=== PATIENT | male | born 1945 | race Caucasian/White ===

== ENCOUNTER → 2018-03-01 | Outpatient (CLI) | payer MEDICARE, OTHER ==
[~2018-03-01] MED LIST: GADOBENATE DIMEGLUMINE 1 ML IV ONE; LOSARTAN POTASS25 MG PO; METOPROLOL SUCC25 MG PO; NORCO 7.5-3251 EACH PO
[2018-03-01 10:27] LABS: BLOOD UREA NITROGEN 15 mg/dL (7-26); BUN/CREATININE RATIO 18 (6-25); CREATININE, SERUM 0.82 mg/dL (0.72-1.25); EST GLOMERULAR FILTRATION RATE > 60 ML/MIN (60-)
--- NOTE | 2018-03-01 17:24 | Diagnostic Imaging Report ---
MRI SPINE LUMBAR WOW History: 72-year-old male with 40 years of right hip and leg pain , prior surgery on December 11, laminectomy, \S\INTERVERTEBRAL DISC DISORDERS W/RAD Comparison studies:None Technique: Sagittal and axial T2 , sagittal T1 and IR, axial spin density oblique. Post Sag T1 fat sat. Intravenous contrast: Multihance 20cc IV Findings: Number of lumbar vertebral bodies: 5. Alignment: Normal lordosis. Mild right apex curvature of lumbar spine at L1-L2 Soft tissues: No T2 hyperintense inflammatory changes. Paraspinal muscles: No signal abnormalities. Well-preserved. No atrophic changes Lower thoracic cord: Normal in signal and morphology. The tip of the conus is at T12-L1 . Cauda equina: No masses. No arachnoiditis. Vertebrae: No compression fractures, infection or neoplasm. Degenerative changes: L1-L2: Decreased T2 signal within the disc space. Symmetric bulging disc with 3 mm of posterior mass effect. Spinal canal widely patent. Bilateral neural foramina widely patent. Mild facet arthropathy left greater than right. L2-L3: Decreased T2 signal and disc height. Symmetrical bulging disc with 3 mm of posterior mass effect. Spinal canal widely patent. Moderate narrowing of the left foramen. Mild narrowing of the right foramen. L3-L4: Decreased T2 signal within the disc. Symmetric bulging disc with 3.4 mm of posterior mass effect. Hypertrophied ligamentum flavum. Mild to moderate narrowing of the spinal canal. Moderate narrowing of the left foramen. Bilateral facet hypertrophy right greater than left. L4-L5: Decreased T2 signal and disc height. Asymmetric bulging disc with 2 mm of posterior mass effect. Thickening of the ligamentum flavum. Mild narrowing of the spinal canal. Moderate to severe narrowing of the right foramen. Left foraminal widely patent. Mild to moderate bilateral facet arthropathy. L5-S1: Postoperative changes from right hemilaminectomy. Enhancing scar tissue within the right paraspinous muscle. Decreased T2 signal within the disc space. Symmetric bulging disc with 7 mm of posterior mass effect. Mixed signal within posterior central bulge with approximately 80% enhancement. Mild to moderate narrowing of the spinal canal. Right foraminotomy with enhancing scar tissue. Moderate to severe narrowing of right foramen. Moderate narrowing of the left foramen. Advanced bilateral facet arthropathy. 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 Hepatomegaly and prominent tortious splenic vein incompletely imaged, consider portal hypertension. IMPRESSION: 1. Status post right L5-S1 hemilaminectomy with moderate to severe narrowing of the right foramen from enhancing scar tissue. Posterior mass effect within the canal predominantly from enhancing scar. 2. Moderate severe narrowing of the right L4-L5 foramen. Signed by: Dr. Calvin Hernandez M.D. on 03/01/2018 5:20 PM
== END ==
LOC: MRI 09:32
PROVIDERS: ATTEND Neurological Surgery
DX: M51.16 Intervertebral disc disorders with radiculopathy, lumbar region (principal)
CPT/HCPCS: 36415; 72158; 82565; 84520